=== PATIENT | male | born 1970 | race Caucasian/White ===

== ENCOUNTER 2018-02-22 18:37 | Emergency (ER) | payer OTHER ==
[~2018-02-22] VITALS: Ht 171.4 cm; Wt 103.9 kg
[~2018-02-22 18:37] MED LIST: ESTER-C 500 MG1 TAB PO; FISH OIL 1,2001 CAP PO; MULTIPLE VITAMI1 TA1 PO; PRILOSEC20 MG PO; ZOCOR40 MG PO; ZOLOFT50 MG PO
[2018-02-22 19:06] VITALS: Ht 171.4 cm; Wt 103.9 kg
[2018-02-22 19:39] LABS: BASOPHILS 0.2 % (0-2); EOSINOPHILS 3.7 % (0-7); HEMATOCRIT 42.3 % (42.0-54.0); HEMOGLOBIN 14.8 g/dL (13.5-17.5); IMMATURE GRANULOCYTES 0.3 % (0-5); LYMPHOCYTES 31.2 % (15-50); MCH 32.5 pg (26.0-34.0); MEAN PLATELET VOLUME 11.2 fL (7.4-10.4); MONOCYTES 6.7 % (2-11); NEUTROPHILS 57.9 % (40-80); PLATELET COUNT 169 10x3/uL (130-400); RBC 4.55 10x6/uL (4.20-6.10); RDW 13.3 % (11.5-14.5); WBC 12.1 10x3/uL (4.8-10.8)
[2018-02-22 19:54] LABS: APTT 30.7 SECONDS (22.8-39.4); INR 0.98 (0.85-1.17); PROTIME 12.6 SECONDS (11.6-15.0)
[2018-02-22 19:55] LABS: D-DIMER-QUANTITATIVE 0.4 ug/mLFEU (0.20-0.54)
[2018-02-22 19:57] LABS: ALBUMIN 3.8 g/dL (3.4-5.0); ALKALINE PHOSPHATASE 88 U/L (46-116); ALT (SGPT) 33 U/L (10-68); CALC OSMOLALITY 281 mosm/kg (275-300); CALCIUM 9.1 mg/dL (8.5-10.1); CARBON DIOXIDE 22.2 mmol/L (21.0-32.0); CHLORIDE - SERUM 107 mmol/L (98-107); CREATININE - SERUM 1.1 mg/dL (0.6-1.3); GLUCOSE 135 mg/dL (74-106); POTASSIUM - SERUM 3.5 mmol/L (3.5-5.1); PROTEIN - SERUM 7.2 g/dL (6.4-8.2); SODIUM 141 mmol/L (136-145); UREA NITROGEN 10 mg/dL (7-18); eGFR NON AFRICAN AMERICAN 77 mL/min (90-120)
[2018-02-22] MEDS ORDERED: IBUPROFEN800 MG PO (23:48)
[2018-02-22] MEDS ORDERED: CYCLOBENZAPRINE10 MG PO (23:48)
[2018-02-22] MEDS ORDERED: ACETAMINOPHEN500 M1 PO (23:48)
[2018-02-23 00:20] VITALS: BP 150/77
== END 2018-02-23 00:22 | disposition home or self-care (01) ==
LOC: D.ER 18:37
PROVIDERS: Family Medicine
DX: M25.561 Pain in right knee (principal); F17.200 Nicotine dependence, unspecified, uncomplicated

== ENCOUNTER 2018-09-25 17:12 | Emergency (ER) | payer OTHER ==
[~2018-09-25] VITALS: Ht 171.4 cm; Wt 109.1 kg
[~2018-09-25 17:12] MED LIST changes: +ACETAMINOPHEN500 M1 PO; +CYCLOBENZAPRINE10 MG PO; +IBUPROFEN800 MG PO
[2018-09-25 17:37] VITALS: Ht 171.4 cm; Wt 109.1 kg
[2018-09-25 19:01] LABS: BASOPHILS 0.4 % (0-2); EOSINOPHILS 3.4 % (0-7); HEMATOCRIT 47.3 % (42.0-54.0); IMMATURE GRANULOCYTES 0.2 % (0-5); LYMPHOCYTES 30.2 % (15-50); MCH 32.7 pg (26.0-34.0); MCHC 33.8 g/dL (31.0-37.0); MCV 96.7 fL (80.0-100.0); MEAN PLATELET VOLUME 11.5 fL (7.4-10.4); MONOCYTES 6.1 % (2-11); NEUTROPHILS 59.7 % (40-80); PLATELET COUNT 174 10x3/uL (130-400); RBC 4.89 10x6/uL (4.20-6.10); RDW 13.2 % (11.5-14.5); WBC 12.1 10x3/uL (4.8-10.8)
[2018-09-25 19:05] LABS: APPEARANCE CLEAR (CLEAR); BILIRUBIN NEGATIVE (NEGATIVE); COLOR YELLOW (YELLOW); GLUCOSE NEGATIVE (NEGATIVE); KETONE NEGATIVE (NEGATIVE); NITRITE NEGATIVE (NEGATIVE); PROTEIN NEGATIVE (NEGATIVE); SPECIFIC GRAVITY 1.015 (1.005-1.020); UROBILINOGEN NORMAL (NORMAL)
[2018-09-25 19:30] LABS: ALBUMIN 3.9 g/dL (3.4-5.0); ALKALINE PHOSPHATASE 90 U/L (46-116); ALT (SGPT) 75 U/L (10-68); BILIRUBIN - TOTAL 0.41 mg/dL (0.2-1.3); CALC OSMOLALITY 282 mosm/kg (275-300); CARBON DIOXIDE 26.6 mmol/L (21.0-32.0); CHLORIDE - SERUM 103 mmol/L (98-107); GLUCOSE 111 mg/dL (74-106); POTASSIUM - SERUM 3.4 mmol/L (3.5-5.1); PROTEIN - SERUM 7.8 g/dL (6.4-8.2); SODIUM 142 mmol/L (136-145); UREA NITROGEN 10 mg/dL (7-18); eGFR NON AFRICAN AMERICAN 85 mL/min (90-120)
[2018-09-25 19:34] LABS: AMYLASE - SERUM 53 U/L (25-115); LIPASE 215 U/L (73-393)
[2018-09-25 19:42] LABS: TROPONIN-I < 0.017 ng/mL (0.000-0.060)
[2018-09-25] MEDS ORDERED: CARAFATE1 G PO (22:05)
[2018-09-25] MEDS ORDERED: PROTONIX40 MG PO (22:05)
[2018-09-25 22:13] VITALS: BP 144/92
== END 2018-09-25 22:15 | disposition home or self-care (01) ==
LOC: D.ER 17:12
PROVIDERS: Family Medicine
DX: K29.70 Gastritis, unspecified, without bleeding (principal); R10.13 Epigastric pain; F17.200 Nicotine dependence, unspecified, uncomplicated

== ENCOUNTER → 2018-10-16 09:49 | Outpatient (CLI) | payer OTHER ==
[2018-09-25 17:37] VITALS: BMI 37.1
[~2018-10-16 09:49] MED LIST changes: +CARAFATE1 G PO; +HYDROCODON-ACE1 EAC7 PO; +PROTONIX40 MG PO; +TOPAMAX50 MG PO; +ZOCOR80 MG PO
== END | disposition home or self-care (01) ==
LOC: D.NM 09:49
DX: R10.11 Right upper quadrant pain (principal)

== ENCOUNTER 2018-10-24 05:50 | Day surgery (SDC) | payer OTHER ==
[~2018-10-24] VITALS: Ht 170.2 cm; Wt 111.1 kg
[~2018-10-24 05:50] MED LIST changes: -HYDROCODON-ACE1 EAC7 PO
[2018-10-24 06:45] VITALS: BP 123/82; Ht 170.2 cm; Wt 111.1 kg
[2018-10-24] MEDS ORDERED: HYDROCODON-ACE1 EAC7 PO (09:10)
--- NOTE | 2018-10-24 09:45 | NUR ---
REC'D FROM RR. DROWSY. AROUSES TO VERBAL STIMULI. FAMILY AT BEDSIDE. DRESSING CDI TO SURGICAL INCISIONS X4. SODA BROUGHT TO PT AND FL TRAY.
--- NOTE | 2018-10-24 10:15 | NUR ---
EYES CLOSED HOWEVER AROUSES WHEN HEARS SOMEONE TALKING. TOLERATED FL TRAY. NO URGE TO VOID.
--- NOTE | 2018-10-24 10:45 | NUR ---
AMBULATED TO BATHROOM. FAMILY AT BEDSIDE.
--- NOTE | 2018-10-24 11:00 | NUR ---
VOIDED WITHOUT DIFFICULTY.
--- NOTE | 2018-10-24 11:07 | NUR ---
SOME NAUSEA WITH MOVEMENT. ZOFRAN 4MG IV ADMINISTERED PER ORDERS.
--- NOTE | 2018-10-24 11:10 | NUR ---
WRITTEN AND VERBAL DC INST GIVEN TO PT AND FAMILY. VERBALIZED UNDERSTANDING.
--- NOTE | 2018-10-24 11:20 | NUR ---
DC'D HOME WITH FAMILY VIA PRIVATE VEHICLE. TAKEN TO VEHICLE VIA WC. STABLE AT TIME OF DC.
== END 2018-10-24 11:20 | disposition home or self-care (01) ==
LOC: D.OPS 05:50
DX: K82.8 Other specified diseases of gallbladder (principal); E78.5 Hyperlipidemia, unspecified; F17.200 Nicotine dependence, unspecified, uncomplicated; Z01.812 Encounter for preprocedural laboratory examination

== ENCOUNTER → 2021-01-11 12:36 | Outpatient (CLI) | payer OTHER ==
[2018-10-24 06:45] VITALS: BMI 38.4
[~2021-01-11 12:36] MED LIST changes: +HYDROCODON-ACE1 EAC7 PO
--- NOTE | 2021-01-13 12:15 | ST ---
PATIENT:CELESTE CALDERON MEDICAL RECORD: [id number] SEX: M LOCATION:[facility] ORDER #: ADMISSION DATE: 01/11/21 AGE OF PATIENT: 50 REFERRING PHYSICIAN: INTERPRETING PHYSICIAN: JAYME POWERS MD DATE OF SERVICE: 01/11/2021 PROCEDURE: Regular treadmill. Baseline ECG is normal. Exercised for 7 minutes 15 seconds on Dar protocol. Maximum heart rate 146 beats per minute, 85% max predicted. No ECG changes of ischemia or symptoms of ischemia. Normal blood pressure response to exercise, no arrhythmias noted. Fair exercise tolerance for age. TRANSINT:[id number] Voice Confirmation ID: [id number] DOCUMENT ID: [id number] JAYME POWERS MD at 1215 CC: [id number] DICTATION DATE: 01/12/21 1532 MICA PLATE LAYER: 01/13/21 0414 DEP CLI 01/11/21 [place] [id number] [place] [address]
--- NOTE | 2021-01-13 12:15 | EC ---
PATIENT:CELESTE CALDERON DATE OF SERVICE: 01/11/21 SEX: M MEDICAL RECORD: [id number] DATE OF : 74 LOCATION:[facility] [place] AGE OF PATIENT: 50 ADMISSION DATE: 01/11/21 REFERRING PHYSICIAN: INTERPRETING PHYSICIAN: JAYME POWERS MD ECHOCARDIOGRAM REPORT ECHO CHARGES 4 ECHO COMPLETE Date: 01/11/21 CLINICAL DIAGNOSIS: HTN/HEART MURMUR/ANGINA ECHOCARDIOGRAPHIC MEASUREMENTS (adult normal given) AC root (d.<3.7cm) 3.9 cm LV Septum d (<1.2 cm> 1.6 cm Valve Excursion 2.0 cm LV Septum (systole) 1.8 cm Left Atria (s.<4.0cm> 3.7 cm LVPW d(<1.2cm) 1.6 cm RV (d.<2.3cm) 3.2 cm LVPW (sytole) 2.0 cm LV diastole(<5.6CM) 4.7 cm MV E-F(>70mm/sec) cm LV systole 2.8 cm LVOT Diameter 2.0 cm MV exc.(>10mm) 1.7 cm Est.ejection fraction (50-75%) % DOPPLER: LVIT cm/sec A 82.0 cm/sec E 64.0 cm/sec LA cm/sec RVSP 21 mmHg LVOT 99 cm/sec AOP1/2T m/s Asc. Ao 144 cm/sec RVOT 82 cm/sec RA cm/sec PA 109 cm/sec AV Gradient Peak 8.29 mmHg AV Mean 4.57 mmHg AV Area 2.2 cm MV Gradient Peak 3.25 mmHg MV Mean 1.68 mmHg MV Area cm COMMENTS: Public Administration Professor: 2 JOSE JARRELL Lithographic Proofer Apprentice: 3 Dr. Melton TAPE# PACS Pericardial Effusion N DATE OF SERVICE: Adequate 2D, color-flow imaging, spectral Doppler, and M-Mode. FINDINGS: LVH is present. LV internal dimensions are normal. Wall motion is normal. EF is greater than or equal to 55%. Aortic valve is tricuspid. No evidence of stenosis by Doppler interrogation. Left atrium is normal at 3.7 cm. Mitral valve shows no prolapse. Trace MR. Right side is grossly normal. Trace TR. ECHOCARDIOGRAM REPORT [id number] CELESTE CALDERON TRANSINT:[id number] Voice Confirmation ID: [id number] DOCUMENT ID: [id number] JAYME POWERS MD at 1215 CC: [id number] DICTATION DATE: 01/12/211449 [employer]: 01/12/21 224 DEP CLI 01/11/21 [place] [id number] [place] [id number]
== END | disposition home or self-care (01) ==
LOC: D.HCCARDIO 12:36
PROVIDERS: ATTEND Internal Medicine Interventional Cardiology
DX: I20.9 Angina pectoris, unspecified (principal); I10 Essential (primary) hypertension